=== PATIENT | male | born 1960 | race Caucasian/White ===

== ENCOUNTER 2017-11-01 18:45 | Emergency (ER) | payer MEDICAID ==
[~2017-11-01] VITALS: Ht 5703.2 cm; Wt 101.7 kg
[~2017-11-01 18:45] MED LIST: NO HOME MEDS
[2017-11-01] MEDS ORDERED: morphine 4 MG/ML inj SYRINge IV ONE (21:00)
[2017-11-01 21:12] LABS: BASOPHILS % (AUTO) 0.2 % (0-1); EOSINOPHILS % (AUTO) 0 % (0-6); LYMPHOCYTES % (AUTO) 8.8 % (21-51); MEAN CORPUSCULAR HEMOGLOBIN 29.4 PG (27.0-31.0); MEAN CORPUSCULAR HGB CONC 34.9 % (33.0-36.5); MEAN CORPUSCULAR VOLUME 84.3 FL (78-98); MEAN PLATELET VOLUME 7.2 FL (7.4-10.4); MONOCYTES % (AUTO) 8.1 % (2-12); NEUTROPHILS # (AUTO) 9.8 X10'3 (1.8-7.7); NEUTROPHILS % (AUTO) 82.9 % (42-75); PLATELET COUNT 237 X10'3 (140-440); RED BLOOD COUNT 5.11 X10'6 (4.70-6.10); RED CELL DISTRIBUTION WIDTH 13.4 % (11.5-14.5); WHITE BLOOD COUNT 11.8 X10'3 (4.5-11.0)
[2017-11-01 21:27] LABS: ALANINE AMINOTRANSFERASE 33 U/L (12-78); ALBUMIN 3.5 G/DL (3.4-5.0); ALBUMIN/GLOBULIN RATIO 0.8 (1.1-1.5); ALKALINE PHOSPHATASE 82 IU/L (46-116); ANION GAP 9 (8-16); ASPARTATE AMINO TRANSFERASE 14 U/L (10-37); BILIRUBIN,TOTAL 0.4 MG/DL (0.1-1.0); BLOOD UREA NITROGEN 11 MG/DL (7-18); BUN/CREATININE RATIO 10.3 (5.4-32.0); CALCIUM 9.3 MG/DL (8.5-10.1); CHLORIDE 103 MMOL/L (99-107); CREATININE 1.07 MG/DL (0.60-1.10); GLUCOSE 164 MG/DL (70-104); SODIUM 138 MMOL/L (135-145); TOTAL CARBON DIOXIDE 26.1 MMOL/L (24-32); TOTAL PROTEIN 7.8 G/DL (6.4-8.2); eGFR 72 ML/MIN
[2017-11-01] MEDS ORDERED: iohexol 300mg/ml 100ml inj. ONE (21:33)
[2017-11-01] MEDS ORDERED: ketorolac trometh. 30mg/ml inj. IV ONE (22:00)
[2017-11-01] MEDS ORDERED: CefTRIAXone/D5W-Rocephin 1gm 50 ML IV ONE (22:20)
[2017-11-01 22:23] VITALS: BP 141/79
[2017-11-01] MEDS ORDERED: PRED10TA23 PO (22:48)
[2017-11-01] MEDS ORDERED: AMOX-422 PO (22:48)
[2017-11-01] MEDS ORDERED: methylPREDNISolone sod succ 125mg/2ml vial IV ONE (22:50)
== END 2017-11-01 23:05 | disposition home or self-care (01) ==
LOC: ER 18:46
DX: J02.9 Acute pharyngitis, unspecified (principal); J32.9 Chronic sinusitis, unspecified; K21.9 Gastro-esophageal reflux disease without esophagitis; G89.29 Other chronic pain; F15.10 Other stimulant abuse, uncomplicated; Z56.0 Unemployment, unspecified; Z79.899 Other long term (current) drug therapy
CPT/HCPCS: 36415; 70491; 80053; 85025; 96365; 96375; 99285; J0696; J1885; J2270; J2930; J7030; Q9967

== ENCOUNTER 2018-01-02 10:02 | Emergency (ER) | payer MEDICAID ==
[~2018-01-02] VITALS: Ht 165.1 cm; Wt 104.9 kg
[2018-01-02 10:05] VITALS: BP 164/100
[2018-01-02] MEDS ORDERED: erythromycin ophthalmic ointment 1gm tube EACHEYE ONE (11:45)
[2018-01-02] MEDS ORDERED: benoxinate/fluorescein ophth drops 5ml bottle RIGHTEYE ONE (11:45)
[2018-01-02] MEDS ORDERED: PROPARACAINE/FLUORESCEIN ophthalmic drops 5ml bottle RIGHTEYE ONE ×2 (11:50→12:05)
[2018-01-02] MEDS ORDERED: ERYT1OIN6 EACHEYE (12:22)
== END 2018-01-02 12:32 | disposition home or self-care (01) ==
LOC: ER 10:03
DX: H57.11 Ocular pain, right eye (principal); F15.10 Other stimulant abuse, uncomplicated; K21.9 Gastro-esophageal reflux disease without esophagitis; G89.29 Other chronic pain; Z56.0 Unemployment, unspecified
CPT/HCPCS: 99283

== ENCOUNTER 2018-01-21 16:53 | Emergency (ER) | payer MEDICAID ==
[~2018-01-21] VITALS: Ht 172.7 cm; Wt 104.5 kg
[~2018-01-21 16:53] MED LIST changes: +ERYT1OIN6 EACHEYE
[2018-01-21 18:13] VITALS: BP 145/97
== END 2018-01-21 18:13 | disposition home or self-care (01) ==
LOC: ER 16:54
DX: M54.9 Dorsalgia, unspecified (principal); G89.29 Other chronic pain; R60.0 Localized edema; K21.9 Gastro-esophageal reflux disease without esophagitis; F15.90 Other stimulant use, unspecified, uncomplicated; Z98.890 Other specified postprocedural states; Z56.0 Unemployment, unspecified; Z79.899 Other long term (current) drug therapy
CPT/HCPCS: 93971; 99284

== ENCOUNTER 2021-08-29 11:00 | Outpatient (CLI) | payer BC ==
[~2021-08-29 11:00] MED LIST changes: -ERYT1OIN6 EACHEYE; +ONDA8TAB6 PO
[2021-08-29 12:09] LABS: BASOPHILS % (AUTO) 0.3 % (0-1); EOSINOPHILS # (AUTO) 0.1 X10'3 (0-0.9); EOSINOPHILS % (AUTO) 0.7 % (0-6); LYMPHOCYTES # (AUTO) 1.4 X10'3 (1.1-4.8); MEAN PLATELET VOLUME 8.1 FL (7.4-10.4); MONOCYTES # (AUTO) 0.7 X10'3 (0-0.9); MONOCYTES % (AUTO) 8.2 % (2-12); NEUTROPHILS # (AUTO) 5.9 X10'3 (1.8-7.7); NEUTROPHILS % (AUTO) 73.8 % (42-75); PLATELET COUNT 236 X10'3 (140-440); RED CELL DISTRIBUTION WIDTH 13.6 % (11.5-14.5); WHITE BLOOD COUNT 8.1 X10'3 (4.5-11.0)
[2021-08-29 12:23] LABS: APTT 26 SECONDS (22-32)
[2021-08-29 12:35] LABS: ALANINE AMINOTRANSFERASE 33 U/L (12-78); ALKALINE PHOSPHATASE 79 IU/L (46-116); ANION GAP 12 (8-16); BILIRUBIN,TOTAL 0.5 MG/DL (0.1-1.0); BLOOD UREA NITROGEN 20 MG/DL (7-18); CALCIUM 8.9 MG/DL (8.5-10.1); CHLORIDE 106 MMOL/L (99-107); SODIUM 142 MMOL/L (135-145); TOTAL CARBON DIOXIDE 23.8 MMOL/L (24-32); eGFR 76 ML/MIN
[2021-08-29 12:36] LABS: RED BLOOD COUNT 5.21 X10'6 (4.70-6.10)
[2021-08-29 12:37] LABS: ALBUMIN/GLOBULIN RATIO 1.2 (1.1-1.5); ASPARTATE AMINO TRANSFERASE 17 U/L (10-37); GLUCOSE 132 MG/DL (70-104); HEMATOCRIT 45.4 % (42.0-52.0); MEAN CORPUSCULAR HEMOGLOBIN 30.7 PG (27.0-31.0); MEAN CORPUSCULAR HGB CONC 35.2 g/dL (33.0-36.5); MEAN CORPUSCULAR VOLUME 87.3 FL (78-98); TOTAL PROTEIN 7.3 G/DL (6.4-8.2)
== END 2021-08-29 23:59 | disposition home or self-care (01) ==
LOC: SSTAY O 11:00 → EDSTATUS 08-31 09:30
PROVIDERS: ATTEND Internal Medicine Cardiovascular Disease
DX: Z01.818 Encounter for other preprocedural examination (principal); R07.9 Chest pain, unspecified; R06.02 Shortness of breath; M47.814 Spondylosis without myelopathy or radiculopathy, thoracic region
CPT/HCPCS: 36415; 71046; 80053; 85025; 85610; 85730

== ENCOUNTER 2022-01-11 06:29 | Day surgery (SDC) | payer MEDICAID ==
[2022-01-04 12:23] LABS: BASOPHILS % (AUTO) 0.4 % (0-1); EOSINOPHILS # (AUTO) 0.1 X10'3 (0-0.9); HEMATOCRIT 44.1 % (42.0-52.0); LYMPHOCYTES # (AUTO) 1.1 X10'3 (1.1-4.8); LYMPHOCYTES % (AUTO) 19.6 % (21-51); MEAN CORPUSCULAR HEMOGLOBIN 29.4 PG (27.0-31.0); MEAN CORPUSCULAR VOLUME 86.4 FL (78-98); MEAN PLATELET VOLUME 8.3 FL (7.4-10.4); MONOCYTES # (AUTO) 0.7 X10'3 (0-0.9); MONOCYTES % (AUTO) 13.3 % (2-12); NEUTROPHILS # (AUTO) 3.5 X10'3 (1.8-7.7); NEUTROPHILS % (AUTO) 65.7 % (42-75); PLATELET COUNT 219 X10'3 (140-440); RED BLOOD COUNT 5.11 X10'6 (4.70-6.10); RED CELL DISTRIBUTION WIDTH 13.6 % (11.5-14.5); WHITE BLOOD COUNT 5.4 X10'3 (4.5-11.0)
[2022-01-04 12:28] LABS: ALANINE AMINOTRANSFERASE 25 U/L (12-78); ALBUMIN 3.8 G/DL (3.4-5.0); ALBUMIN/GLOBULIN RATIO 1.1 (1.1-1.5); ALKALINE PHOSPHATASE 74 IU/L (46-116); ANION GAP 7 (8-16); ASPARTATE AMINO TRANSFERASE 17 U/L (10-37); BILIRUBIN,TOTAL 0.4 MG/DL (0.1-1.0); BLOOD UREA NITROGEN 11 MG/DL (7-18); BUN/CREATININE RATIO 10.7 (5.4-32.0); CALCIUM 8.8 MG/DL (8.5-10.1); CHLORIDE 107 MMOL/L (99-107); CREATININE 1.03 MG/DL (0.60-1.10); GLUCOSE 124 MG/DL (70-104); SODIUM 141 MMOL/L (135-145); TOTAL CARBON DIOXIDE 27.2 MMOL/L (24-32); TOTAL PROTEIN 7.2 G/DL (6.4-8.2); eGFR 74 ML/MIN
[2022-01-11] VITALS (13 sets, daily range): BP systolic 123–142; BP diastolic 77–86
[~2022-01-11] VITALS: Ht 172.7 cm; Wt 103.1 kg
[2022-01-11] MEDS ORDERED: normal saline 1,000 ML IV SCH (06:45)
[2022-01-11] MEDS ORDERED: LORazepam 0.5 MG tablet PO PRN (06:45)
[2022-01-11] MEDS ORDERED: diphenhydrAMINE 25mg capsule PO PRN (06:45)
[2022-01-11] MEDS ORDERED: nitroGLYCERIN 0.4mg SUBLingual tab SL PRN ×2 (06:45→10:15)
[2022-01-11] MEDS ORDERED: ACET-1025 PO (06:56)
[2022-01-11] MEDS ORDERED: iohexol 300mg/ml 100ml inj. ONE (08:55)
[2022-01-11] MEDS ORDERED: LIDOcaine 1% 30ml preserv. free vial ONE (08:56)
[2022-01-11] MEDS ORDERED: proCHLORperazine 10 MG/2 ml inj ONE (09:11)
[2022-01-11] MEDS ORDERED: fentaNYL/PF 50MCG/1 ML 2ML syringe ONE (09:12)
[2022-01-11] MEDS ORDERED: midazolam 1 mg/ML 2ml injection ONE ×2 (09:12→09:24)
[2022-01-11] MEDS ORDERED: normal saline 1000ml 1,000 ML IV SCH (10:10)
[2022-01-11] MEDS ORDERED: ondansetron/PF 4mg/2ml inj IV PRN (10:10)
[2022-01-11] MEDS ORDERED: HYDROcodone/acetaminophen 10/325mg tab PO PRN (10:15)
[2022-01-11] MEDS ORDERED: proCHLORperazine 10 MG/2 ml inj IV PRN (10:15)
[2022-01-11] MEDS ORDERED: HYDROcodone/acetaminophen 5mg/325mg tablet PO PRN (10:15)
[2022-01-11] MEDS ORDERED: OXAZEpam 15mg capsule PO PRN (10:15)
== END 2022-01-11 16:55 | disposition home or self-care (01) ==
LOC: SSTAY O 06:29
PROVIDERS: ATTEND Internal Medicine Cardiovascular Disease
DX: R94.39 Abnormal result of other cardiovascular function study (principal); R06.09 Other forms of dyspnea; I25.10 Atherosclerotic heart disease of native coronary artery without angina pectoris; G47.33 Obstructive sleep apnea (adult) (pediatric); I10 Essential (primary) hypertension; E78.5 Hyperlipidemia, unspecified; F15.90 Other stimulant use, unspecified, uncomplicated; F17.210 Nicotine dependence, cigarettes, uncomplicated; Z79.899 Other long term (current) drug therapy
CPT/HCPCS: 36415; 71046; 80053; 83880; 84484; 85025; 85610; 93005; 93458; 99152; C1760; C1769; J0780; J1644; J2250; J3010; J3490; J7030; Q0163; Q9967; A6258

== ENCOUNTER 2023-04-09 09:35 | Emergency (ER) | payer MEDICAID ==
[~2023-04-09] VITALS: Ht 172.7 cm; Wt 98.8 kg
[~2023-04-09 09:35] MED LIST changes: +ACET-1025 PO; -NO HOME MEDS; -ONDA8TAB6 PO
[2023-04-09 09:37] VITALS: BP 167/91; PULSE 73; RESP 16; TEMP 97.8; O2SAT 97
[2023-04-09] MEDS ORDERED: ketorolac tromethamine 15mg/ml inj. IM ONE (12:30)
[2023-04-09] MEDS ORDERED: methylPREDNISolone sod succ 125mg/2ml vial IM ONE (12:30)
[2023-04-09] MEDS ORDERED: NAPR-56 PO (12:47)
[2023-04-09] MEDS ORDERED: CYCL-394 PO (12:47)
== END 2023-04-09 13:04 | disposition home or self-care (01) ==
LOC: ER 09:35
DX: M54.50 Low back pain, unspecified (principal); K21.9 Gastro-esophageal reflux disease without esophagitis; F15.90 Other stimulant use, unspecified, uncomplicated; Z79.1 Long term (current) use of non-steroidal anti-inflammatories (NSAID)
CPT/HCPCS: 96372; 99284; J1885; J2930

== ENCOUNTER 2023-04-29 13:42 | Emergency (ER) | payer MEDICAID ==
[~2023-04-29] VITALS: Ht 172.7 cm; Wt 100.0 kg
[~2023-04-29 13:42] MED LIST changes: +NAPR-56 PO
[2023-04-29 14:04] VITALS: BP 153/86; PULSE 82; RESP 18; TEMP 98.1; O2SAT 96
[2023-04-29] MEDS ORDERED: PRED50TA PO (15:50)
== END 2023-04-29 16:10 | disposition home or self-care (01) ==
LOC: ER 13:43
DX: M72.2 Plantar fascial fibromatosis (principal); M25.562 Pain in left knee; R20.0 Anesthesia of skin; R26.89 Other abnormalities of gait and mobility; G89.29 Other chronic pain; F15.90 Other stimulant use, unspecified, uncomplicated; Z56.0 Unemployment, unspecified; Z98.890 Other specified postprocedural states; Z79.899 Other long term (current) drug therapy
CPT/HCPCS: 99283

== ENCOUNTER 2024-11-01 13:20 | Emergency (ER) | payer MEDICAID ==
[~2024-11-01] VITALS: Ht 172.7 cm; Wt 102.6 kg
[~2024-11-01 13:20] MED LIST changes: +PRED50TA PO
[2024-11-01 15:02] VITALS: BP 170/104; PULSE 79; RESP 15; TEMP 98.1; O2SAT 96
[2024-11-01] MEDS ORDERED: AZIT250T13 PO (15:15)
[2024-11-01] MEDS ORDERED: HYDR25SU48 RC (15:15)
[2024-11-01 15:27] LABS: BASOPHILS % (AUTO) 0.6 % (0-1); EOSINOPHILS # (AUTO) 0.1 X10'3 (0-0.9); EOSINOPHILS % (AUTO) 1.4 % (0-6); HEMATOCRIT 46.9 % (42.0-52.0); HEMOGLOBIN 15.8 g/dl (14.0-17.9); LYMPHOCYTES # (AUTO) 1.5 X10'3 (1.1-4.8); LYMPHOCYTES % (AUTO) 17.5 % (21-51); MEAN CORPUSCULAR HGB CONC 33.8 g/dL (33.0-36.5); MEAN CORPUSCULAR VOLUME 85.8 FL (78-98); MEAN PLATELET VOLUME 7.4 FL (7.4-10.4); MONOCYTES # (AUTO) 0.6 X10'3 (0-0.9); MONOCYTES % (AUTO) 7.1 % (2-12); NEUTROPHILS # (AUTO) 6.1 X10'3 (1.8-7.7); NEUTROPHILS % (AUTO) 73.4 % (42-75); PLATELET COUNT 289 X10'3 (140-440); RED BLOOD COUNT 5.46 X10'6 (4.70-6.10); RED CELL DISTRIBUTION WIDTH 13.7 % (11.5-14.5); WHITE BLOOD COUNT 8.3 X10'3 (4.5-11.0)
[2024-11-01 15:42] LABS: APTT 29 SECONDS (22-32); PROTHROMBIN TIME 10.1 SECONDS (9.0-12.0)
[2024-11-01 15:50] LABS: ALBUMIN 3.9 G/DL (3.4-5.0); ANION GAP 11 (8-16); BLOOD UREA NITROGEN 14 MG/DL (7-18); BUN/CREATININE RATIO 15.6 (10.0-20.0); CALCIUM 8.9 MG/DL (8.5-10.1); CHLORIDE 101 MMOL/L (99-107); GLUCOSE 111 MG/DL (70-104); POTASSIUM 4.2 MMOL/L (3.5-5.1); SODIUM 140 MMOL/L (135-145); TOTAL CARBON DIOXIDE 27.6 MMOL/L (24-32); eCRCL 82 ML/MIN; eGFR 86 ML/MIN
== END 2024-11-01 15:56 | disposition home or self-care (01) ==
LOC: ER 13:20
DX: K62.5 Hemorrhage of anus and rectum (principal); J44.1 Chronic obstructive pulmonary disease with (acute) exacerbation; F17.200 Nicotine dependence, unspecified, uncomplicated; F15.90 Other stimulant use, unspecified, uncomplicated; G89.29 Other chronic pain; M54.9 Dorsalgia, unspecified; K21.9 Gastro-esophageal reflux disease without esophagitis; Z98.890 Other specified postprocedural states; Z79.899 Other long term (current) drug therapy; Z56.0 Unemployment, unspecified
CPT/HCPCS: 36415; 80048; 85025; 85610; 85730; 99283

== ENCOUNTER 2024-12-06 09:55 | Emergency (ER) | payer MEDICAID ==
[~2024-12-06] VITALS: Ht 172.7 cm; Wt 83.3 kg
[2024-12-06] MEDS ORDERED: HYDR-3973 PO (13:10)
[2024-12-06 13:16] VITALS: BP 148/104; PULSE 83; RESP 16; TEMP 98.5; O2SAT 96
== END 2024-12-06 13:19 | disposition home or self-care (01) ==
LOC: ER 09:55
DX: M25.561 Pain in right knee (principal)
CPT/HCPCS: 73564; 93971; 99284